=== PATIENT | male | born 1970 | race Caucasian/White ===

== ENCOUNTER → 2017-10-25 09:23 | Outpatient (CLI) | payer BC, SELFPAY ==
--- NOTE | 2017-10-25 09:36 | US_ITS ---
US urinary bladder CLINICAL INDICATION: ITS.REASON: UTI,WEAK STREAM ORDERING PHYSICIAN: Angela Ballard PATIENT AGE: 47 years Comparison: None FINDINGS: Urinary bladder has an unremarkable appearance. Bilateral ureteral jets are present. No obvious bladder mass or obvious mucosal thickening. No internal debris. The prevoid volume is 589 mL. There is a moderate post void residual urine with post void volume estimated at 364 mL's. IMPRESSION: Large amount of post void residual urine within the bladder otherwise negative bladder ultrasound
== END ==
PROVIDERS: PCP Family Medicine; Visit Provider Family Medicine
DX: N39.0 Urinary tract infection, site not specified (principal); R39.12 Poor urinary stream
CPT/HCPCS: 76857